=== PATIENT | female | born 1985 | race African-American/Black ===

== ENCOUNTER 2018-12-07 20:37 | Emergency (ER) | payer OTHER ==
[~2018-12-07] VITALS: Wt 75.0 kg
[2018-12-07 20:43] VITALS: BP 137/67; PULSE 84; RESP 18
--- NOTE | 2018-12-07 21:29 | ERD ---
ER Documentation Chief Complaint Chief Complaint c/o pain in throat/chest/back x 1 week, taking tums for acid reflux HPI This is a 33-year-old female who presents here in emergency department with complaints of throat pain for about a week. Stated that she has been taking Tums for acid reflux. LMP: 11/20/2017. A0. Denies headache, head injury, loss of consciousness, dizziness, neck pain, neck stiffness, throat pain, difficulty swallowing, difficulty breathing lying flat, shoulder pain, chest pain, back pain, abdominal pain, nausea, vomiting, constipation, diarrhea, urinary symptoms, or possibility being , loss of bowel and bladder control, trauma, injury, falls, difficulty walking due to pain, numbness or tingling sensation, calf pain, recent travel, recent major surgery in the last 3 weeks, calf pain, recent long travel, recent exposure to any illness, recent antibiotic use in the last 3 months, fever, chills, seizures. Past medical history: Surgical history: Social: Denies smoking, use of alcoholic beverages, use of illegal drugs. ROS All systems reviewed and are negative except as per history of present illness. Medications Home Meds Active Scripts Acetaminophen* (Tylophen*) 500 Mg Capsule, 1 CAP PO Q6H PRN for PAIN AND OR ELEVATED TEMP, #20 CAP Prov:OSBALDO MERCHANT 12/07/18 Omeprazole* (Omeprazole*) 40 Mg Capsule.dr, 40 MG PO DAILY, #30 CAP Prov:GIORGIOILABANMELISSAAR F 12/07/18 Ondansetron Hcl* (Zofran*) 4 Mg Tablet, 4 MG PO Q8H PRN for NAUSEA AND/OR VOMITING, #30 TAB Prov:GIORGIOBETHOSBALDO F 12/07/18 Allergies Allergies: Coded Allergies: No Known Drug Allergies (Verified Allergy, Unknown, 12/07/18) Physical Exam Vitals Physical Exam Const: No acute respiratory distress Head: Atraumatic Eyes: Normal Conjunctiva ENT: Normal External Ears, Nose and Mouth. Bilateral ears: TMs are not erythematous. No bleeding. No discharge. No hearing loss. No mastoid tenderness. Nose: There is no frontal or maxillary sinus tenderness to palpation. Throat: Uvula is in midline and nondisplaced. Tonsils are +1 bilaterally without redness and without exudates. Tolerating secretions. Patent airway. Speaks full and clear sentences. Neck: Full range of motion. No meningismus. No nuchal rigidity. No signs of meningeal irritation. Resp: Clear to auscultation bilaterally Cardio: Regular rate and rhythm, no murmurs Abd: Soft, non tender, non distended. Normal bowel sounds. Negative [place] sign. Negative [place] sign (heel jar test). Negative psoas sign. Negative Rovsing sign. No CVA tenderness. Examined with female banking pin adjuster. Has mild suprapubic tenderness. Bilateral inguinal area has no swelling/ bulging/tenderness. Skin: No petechiae or rashes. Color appears normal for ethnicity. No skin tenting. No signs of severe dehydration. Back: No midline or flank tenderness Ext: No cyanosis, or edema Neur: Awake and alert. No neurological deficits. Psych: Normal Mood and Affect Results 24 hrs Laboratory Tests Test 12/07/18 21:45 12/07/18 21:47 Urine Color YELLOW Urine Clarity CLEAR Urine pH 7.0 Urine Specific [place] 1.014 Urine Ketones NEGATIVE mg/dL Urine Nitrite NEGATIVE mg/dL Urine Bilirubin NEGATIVE mg/dL Urine Urobilinogen NEGATIVE mg/dL Urine Leukocyte Esterase NEGATIVE Alexander/ul Urine Hemoglobin NEGATIVE mg/dL Urine Glucose NEGATIVE mg/dL Urine Total Protein NEGATIVE mg/dl POC Beta HCG, Qualitative NEGATIVE Current Medications Medications Dose Sig/Ayla Start Time Status Last (Trade) Ordered Route PRN Stop Time Admin Dose Reason Admin Ondansetron 4 mg ONCE STAT 12/07/18 DC 12/07/18 HCl (Zofran ODT 21:32 21:46 Odt) 12/07/18 21:34 Famotidine 40 mg ONCE ONCE 12/07/18 DC 12/07/18 (Pepcid) PO 22:00 22:16 12/07/18 22:01 40 ml ONCE ONCE 12/07/18 DC 12/07/18 Miscellaneous PO 22:00 22:17 Medication 12/07/18 22:01 (Gi Cocktail (2)) Procedures/MDM Diagnostic tests: POC urine : Negative. Urinalysis: Negative. Culture urine: Sent. Treatment: Zofran. Pepcid. GI cocktail. Re-evaluation: Negative [place] sign. Negative [place] sign (heel jar test). Negative psoas sign. Negative Rovsing sign. No CVA tenderness. Able to jump 5 times without developing lower abdominal pain. Differential diagnosis I have low suspicion for pancreatitis, cholecystitis, diverticulitis, bowel obstruction, nephrolithiasis, nephritis, obstructing kidney stones, sepsis, ovarian torsion,ovarian cyst rupture. Final diagnosis: GERD. Gastritis. Prescription: Omeprazole. Tylenol. Zofran. Follow-up with PCP in the next 24-48 hours. PCP to refer patient to customer solutions coordinator in the next 3 to 5 days. Come back here in the emergency department for any new symptoms or any worsening symptoms. All questions and concerns were answered. Patient and family members verbalized understanding and agreed with plan of care. Hemodynamically stable on discharge. Departure Diagnosis: Primary Impression: GERD (gastroesophageal reflux disease) Condition: Stable Additional Instructions: Follow-up with PCP in the next 24-48 hours. PCP to refer patient to customer solutions coordinator in the next 3 to 5 days. Come back here in the emergency department for any new symptoms or any worsening symptoms. OSBALDO MERCHANT December 07, 2018 21:29
[2018-12-07] MEDS ORDERED: ONDANSETRON (ODT) 4 MG TAB ODT STA (21:32)
[2018-12-07] MEDS ORDERED: FAMOTIDINE 20 MG TAB PO ONE (22:00)
[2018-12-07] MEDS ORDERED: LIDOCAINE/MYLANTA 40 ML BTL PO ONE (22:00)
[2018-12-07] MEDS ORDERED: ONDA4TAB8 PO (22:22)
[2018-12-07] MEDS ORDERED: ACET500C5 PO (22:23)
[2018-12-07] MEDS ORDERED: OMEP40CA6 PO (22:23)
== END 2018-12-07 23:10 | disposition home or self-care (01) ==
LOC: FTE 20:37
DX: K21.9 Gastro-esophageal reflux disease without esophagitis (principal); M54.9 Dorsalgia, unspecified
CPT/HCPCS: 81003; 81025; 87086; Z7502; Z7610; 99283